=== PATIENT | male | born 1930 | race Caucasian/White ===

== ENCOUNTER 2016-09-15 05:59 | Inpatient (IN) | payer MEDICARE ==
[~2016-09-15] VITALS: Ht 182.9 cm; Wt 70.9 kg
[~2016-09-15 05:59] MED LIST: ASPIRIN EC325 MG OR; CLOPIDOGREL75 MG PO; DONEPEZIL5 MG PO; FLONASE NASAL50 MCG; LORTAB 7.5 PO; MECLIZINE25 MG PO; MEMANTINE HCL10 MG PO; NAPROXEN500 MG PO; PLAVIX75 MG PO; TRAMADOL HCL50 MG PO; [UNRECOGNIZED DRUG - OTHER]
[2016-09-15 07:29] LABS: HEMOGLOBIN 10.8 g/dl (14.0-18.0); IMMATURE GRANULOCYTES 0.6 % (0.0-1.0); MEAN CELL VOLUME 98.2 fL CALC (80.0-100.0); MEAN CORPUSCULAR HGB 32.1 pG CALC (26.0-32.0); MEAN CORPUSCULAR HGB CONC 32.7 g/L CALC (32.0-36.0); NEUT# 11.12 thou/uL (1.82-7.42); RED BLOOD COUNT 3.36 mill/uL (4.70-6.10)
[2016-09-15 07:43] LABS: ALBUMIN 3.9 g/dL (3.2-5.0); ALKALINE PHOSPHATASE 72 u/l (38-126); ANION GAP 13 (6-22 (CALC)); BUN 17 mg/dL (8-23); BUN/CREATININE RATIO 18 (12-20 (CALC)); CALCIUM 9.2 mg/dL (8.4-10.2); CARBON DIOXIDE 26 mmol/l (22-30); CHLORIDE 101 mmol/l (95-108); CREATININE 0.9 mg/dL (0.7-1.3); GFR > 60 ML/MIN (>=60 (CALC)); GFR FOR AFR.AMER. > 60 ML/MIN (>=60 (CALC)); GLUCOSE 148 mg/dL (82-115); POTASSIUM 3.9 mmol/l (3.5-5.1); SGOT/AST 34 u/l (19-48); SGPT/ALT 34 u/l (11-66); SODIUM 136 mmol/l (137-146); TOTAL PROTEIN 7.5 g/dL (6.3-8.2)
[2016-09-15 07:56] LABS: MYOGLOBIN 1415 ng/mL (0 - 121)
[2016-09-15 09:02] LABS: URINE BILIRUBIN - DIPSTICK NEGATIVE (NEGATIVE); URINE BLOOD DIPSTICK MODERATE (NEGATIVE); URINE COLOR YELLOW; URINE GLUCOSE - DIPSTICK NEGATIVE (NEGATIVE); URINE KETONE NEGATIVE (NEGATIVE); URINE LEUK ESTERASE NEGATIVE (NEGATIVE); URINE NITRITE - DIPSTICK NEGATIVE (Negative); URINE PROTEIN - DIPSTICK TRACE mg/dL (NEG-TRACE)
[2016-09-15 09:17] LABS: URINE CLARITY SLIGHT CLOUDY
[2016-09-15 09:18] LABS: URINE MUCUS FEW hpf (NONE-FEW)
[2016-09-15 11:31] VITALS: BP 114/66
[2016-09-15 15:11] VITALS: BP 100/57
[2016-09-15 19:30] VITALS: BP 94/60
[2016-09-16 03:40] VITALS: BP 140/62
[2016-09-16 06:01] LABS: HEMATOCRIT 32.1 % (39.0-50.0); HEMOGLOBIN 10.3 g/dl (14.0-18.0); IMMATURE GRANULOCYTES 0.5 % (0.0-1.0); MEAN CELL VOLUME 100.3 fL CALC (80.0-100.0); MEAN CORPUSCULAR HGB 32.2 pG CALC (26.0-32.0); MEAN CORPUSCULAR HGB CONC 32.1 g/L CALC (32.0-36.0); NEUT# 8.9 thou/uL (1.82-7.42); RED BLOOD COUNT 3.2 mill/uL (4.70-6.10); RED CELL DISTRI WIDTH 11.9 % (11.5-15.5)
[2016-09-16 06:15] LABS: ANION GAP 11 (6-22 (CALC)); BUN 15 mg/dL (8-23); BUN/CREATININE RATIO 18 (12-20 (CALC)); CALCIUM 8.7 mg/dL (8.4-10.2); CARBON DIOXIDE 27 mmol/l (22-30); CHLORIDE 104 mmol/l (95-108); CPK 701 u/l (52-200); CREATININE 0.9 mg/dL (0.7-1.3); GFR > 60 ML/MIN (>=60 (CALC)); GFR FOR AFR.AMER. > 60 ML/MIN (>=60 (CALC)); GLUCOSE 118 mg/dL (82-115); POTASSIUM 4.3 mmol/l (3.5-5.1); SODIUM 138 mmol/l (137-146)
[2016-09-16 07:44] VITALS: BP 106/42
[2016-09-16 16:10] VITALS: BP 112/53
[2016-09-16 19:50] VITALS: BP 122/71
[2016-09-16 20:13] LABS: URINE BILIRUBIN - DIPSTICK NEGATIVE (NEGATIVE); URINE BLOOD DIPSTICK SMALL (NEGATIVE); URINE CLARITY CLEAR; URINE COLOR YELLOW; URINE GLUCOSE - DIPSTICK NEGATIVE (NEGATIVE); URINE KETONE NEGATIVE (NEGATIVE); URINE LEUK ESTERASE NEGATIVE (Negative); URINE NITRITE - DIPSTICK NEGATIVE (Negative); URINE PH 5.5 (4.5-8.0); URINE PROTEIN - DIPSTICK TRACE mg/dL (NEG-TRACE); URINE SPECIFIC GRAVITY 1.025
[2016-09-16 20:28] LABS: URINE WBC 0-2 WBC/hpf (0-5)
[2016-09-17 04:25] VITALS: BP 125/81
[2016-09-17 05:25] LABS: HEMATOCRIT 32.4 % (39.0-50.0); HEMOGLOBIN 10.3 g/dl (14.0-18.0); IMMATURE GRANULOCYTES 0.4 % (0.0-1.0); MEAN CORPUSCULAR HGB 31.8 pG CALC (26.0-32.0); MEAN CORPUSCULAR HGB CONC 31.8 g/L CALC (32.0-36.0); NEUT# 8.05 thou/uL (1.82-7.42); RED BLOOD COUNT 3.24 mill/uL (4.70-6.10); RED CELL DISTRI WIDTH 11.9 % (11.5-15.5)
[2016-09-17 05:49] LABS: ANION GAP 13 (6-22 (CALC)); BUN 13 mg/dL (8-23); BUN/CREATININE RATIO 18 (12-20 (CALC)); CALCIUM 8.4 mg/dL (8.4-10.2); CARBON DIOXIDE 24 mmol/l (22-30); CHLORIDE 102 mmol/l (95-108); CREATININE 0.8 mg/dL (0.7-1.3); GFR > 60 ML/MIN (>=60 (CALC)); GFR FOR AFR.AMER. > 60 ML/MIN (>=60 (CALC)); GLUCOSE 112 mg/dL (82-115); POTASSIUM 3.8 mmol/l (3.5-5.1); SODIUM 135 mmol/l (137-146)
[2016-09-17 07:13] LABS: CPK 264 u/l (52-200)
[2016-09-17 09:07] VITALS: BP 117/73
[2016-09-17 16:11] VITALS: BP 118/73
[2016-09-17 20:00] VITALS: BP 129/78
[2016-09-18 03:55] VITALS: BP 119/66
[2016-09-18 05:25] LABS: ANION GAP 12 (6-22 (CALC)); BUN 15 mg/dL (8-23); BUN/CREATININE RATIO 19 (12-20 (CALC)); CALCIUM 8.7 mg/dL (8.4-10.2); CARBON DIOXIDE 25 mmol/l (22-30); CHLORIDE 101 mmol/l (95-108); CPK 163 u/l (52-200); CREATININE 0.8 mg/dL (0.7-1.3); GFR > 60 ML/MIN (>=60 (CALC)); GFR FOR AFR.AMER. > 60 ML/MIN (>=60 (CALC)); GLUCOSE 107 mg/dL (82-115); POTASSIUM 4.7 mmol/l (3.5-5.1); SODIUM 134 mmol/l (137-146)
[2016-09-18 05:34] LABS: HEMOGLOBIN 10.7 g/dl (14.0-18.0); IMMATURE GRANULOCYTES 0.3 % (0.0-1.0); MEAN CELL VOLUME 99.4 fL CALC (80.0-100.0); MEAN CORPUSCULAR HGB 32.2 pG CALC (26.0-32.0); MEAN CORPUSCULAR HGB CONC 32.4 g/L CALC (32.0-36.0); NEUT# 8.22 thou/uL (1.82-7.42); RED BLOOD COUNT 3.32 mill/uL (4.70-6.10); RED CELL DISTRI WIDTH 11.9 % (11.5-15.5)
[2016-09-18 08:51] VITALS: BP 108/64
[2016-09-18] MEDS ORDERED: TRAMADOL HCL50 MG PO (15:00)
[2016-09-18] MEDS ORDERED: KEFLEX500 MG PO (15:01)
== END 2016-09-18 15:44 | DRG 864 ==
LOC: ENPENDDIS → ED 05:59 → ED-I 09:13 → ED 10:31 → MS2 10:32
PROVIDERS: Emergency Medicine; ADMIT Internal Medicine; ATTEND Internal Medicine
DX: R50.9 Fever, unspecified (principal); E86.0 Dehydration; F03.90 Unspecified dementia, unspecified severity, without behavioral disturbance, psychotic disturbance, mood disturbance, and anxiety; M25.551 Pain in right hip; I25.10 Atherosclerotic heart disease of native coronary artery without angina pectoris; M25.511 Pain in right shoulder; D72.829 Elevated white blood cell count, unspecified; R26.89 Other abnormalities of gait and mobility; Z86.73 Personal history of transient ischemic attack (TIA), and cerebral infarction without residual deficits; Z79.02 Long term (current) use of antithrombotics/antiplatelets; Z91.81 History of falling
CPT/HCPCS: J1650